=== PATIENT | male | born 1980 | race Caucasian/White ===

== ENCOUNTER 2021-03-30 21:28 | Emergency (ER) | payer OTHER ==
[2021-03-30 22:09] LABS: Basophils # (A) 0.1 k/uL (0-0.2); Basophils % (A) 1 %; Eosinophils # (A) 0.2 k/uL (0-0.7); Eosinophils % (A) 2 %; HCT 43.9 % (39.0-53.0); HGB 15.3 gm/dL (13.0-17.5); Lymphocytes # (A) 3.4 k/uL (1.0-4.8); Lymphocytes % (A) 37 %; MCH 31.8 pg (25.0-35.0); MCHC 34.9 g/dL (31.0-37.0); Mean Platelet Volume 7.2; Monocytes # (A) 0.8 k/uL (0-1.0); Monocytes % (A) 8 %; Neutrophils # (A) 4.6 k/uL (1.3-7.7); Neutrophils % (A) 50 %; Platelet Count 310 k/uL (150-450); RBC 4.82 m/uL (4.30-5.90); RDW 12.3 % (11.5-15.5); WBC 9.2 k/uL (3.8-10.6)
[2021-03-30 22:17] LABS: INR 0.9 (<1.2); Partial Thromboplastin Time 23.1 sec (22.0-30.0); Prothrombin Time 10.1 sec (9.0-12.0)
[2021-03-30 22:23] LABS: ALT 28 U/L (4-49); AST 29 U/L (17-59); African American GFR (CKD) >90 (>60 ml/min/1.73 sqM); Albumin 5.1 g/dL (3.5-5.0); Alkaline Phosphatase 81 U/L (38-126); Anion Gap 8 mmol/L; Blood Urea Nitrogen 19 mg/dL (9-20); Calcium 9.9 mg/dL (8.4-10.2); Carbon Dioxide 26 mmol/L (22-30); Chloride 105 mmol/L (98-107); Glucose 96 mg/dL (74-99); Lipase 310 U/L (23-300); Non-African American GFR(CKD) >90 (>60 ml/min/1.73 sqM); Potassium 4.4 mmol/L (3.5-5.1); Sodium 139 mmol/L (137-145); Total Bilirubin 0.4 mg/dL (0.2-1.3); Total Protein 8.1 g/dL (6.3-8.2)
--- NOTE | 2021-03-30 22:39 | ED ---
Chest Pain HPI - General Chief Complaint: Chest Pain Stated Complaint: chest pain Time Seen by Provider: 03/30/21 21:34 Source: patient Mode of arrival: ambulatory Limitations: no limitations - Related Data Home Medications Medication Instructions Recorded Confirmed No Known Home Medications 03/30/21 03/30/21 Allergies Allergy/AdvReac Type Severity Reaction Status Date / Time cephalexin [From Keflex] Allergy Nausea & Verified 03/30/21 22:11 Vomiting Review of Systems ROS Statement: Those systems with pertinent positive or pertinent negative responses have been documented in the HPI. ROS Other: All systems not noted in ROS Statement are negative. EKG Findings - EKG Comments: EKG Findings:: EKG is sinus rhythm 79, [place] 158 QRS 94 QTC 410 Past Medical History Past Medical History: No Reported History History of Any Multi-Drug Resistant Organisms: MRSA Date of last positivie culture/infection: right axilla MDRO Source:: 2011 Past Surgical History: No Surgical Hx Reported Past Psychological History: Anxiety Smoking Status: Never smoker Past Alcohol Use History: Occasional Past Drug Use History: Marijuana General Exam Limitations: no limitations Course Vital Signs 03/30/21 21:29 Temperature 98.6 F Pulse Rate 84 Respiratory 22 Rate Blood Pressure 144/93 O2 Sat by Pulse 98 Oximetry Disposition Clinical Impression: Palpitations, Atypical chest pain Narrative: ?Sleep Apnea Disposition: HOME SELF-CARE Condition: Good Instructions (If sedation given, give patient instructions): Heart Palpitations (ED) Is patient prescribed a controlled substance at d/c from ED?: No Referrals: Sajan Cifuentes MD [STAFF PHYSICIAN] - 1-2 days Tarik Lin MD [Medical Doctor] - 1-2 days
--- NOTE | 2021-03-30 22:44 | XR ---
EXAMINATION TYPE: XR chest 2V DATE OF EXAM: 03/30/2021 COMPARISON: NONE HISTORY: Chest pain TECHNIQUE: 2 views FINDINGS: Heart and mediastinum are normal. Lungs are clear. Diaphragm is normal. Bony thorax appears normal. There are chest leads. IMPRESSION: Normal chest.
[2021-03-30 23:36] VITALS: BP 131/84; PULSE 67; RESP 16; TEMP 98.1
== END 2021-03-30 23:36 | disposition home or self-care (01) ==
LOC: EC 21:28
DX: R07.89 Other chest pain (principal); R00.2 Palpitations; F12.90 Cannabis use, unspecified, uncomplicated
CPT/HCPCS: 36415; 71046; 80053; 83690; 83735; 83880; 84484; 85025; 85610; 85730; 93005; 99285